=== PATIENT | female | born 1980 | race African-American/Black ===

== ENCOUNTER 2022-10-08 15:50 | Outpatient (CLI) | payer OTHER ==
--- NOTE | 2022-10-08 18:07 | XRAY Report ---
PROCEDURE: Lumbar Spine 2 View INDICATIONS: BACK PAIN,LUMBAR/MUSCLE SPASM,TRAPEZIUS TECHNIQUE: 2 views of the lumbar spine were acquired. COMPARISON: None. FINDINGS: Bones: 5 [id number] vertebrae are present. No significant curvature of the lumbar spine visuali zed. No vertebral body compression fractures. Mild multilevel degenerative changes with disc height loss, endplate spurring, and facet arthropathy. Soft tissues: Overlying bowel gas pattern is normal. No suspicious soft tissue calcifications. IMPRESSION: Multilevel degenerative changes of the lumbar spine. Reviewed by: Ilya Bustillos MD on 10/08/2022 6:06 PM PDT Approved by: Ilya Bustillos MD on 10/08/2022 6:06 PM PDT Station ID: [id number]
== END 2022-10-08 15:51 | disposition home or self-care (01) ==
LOC: DI 15:50
PROVIDERS: ATTEND Registered Nurse
DX: M62.830 Muscle spasm of back (principal); M47.816 Spondylosis without myelopathy or radiculopathy, lumbar region